=== PATIENT | male | born 1980 | race Hispanic/Latino ===

== ENCOUNTER 2017-05-04 04:09 | Emergency (ER) | payer OTHER ==
[2017-05-04 04:22] VITALS: RESP 18; TEMP 97.5; O2SAT 100
[2017-05-04] MEDS ORDERED: Morphine 4 MG/ML VIAL ONE (04:33)
[2017-05-04] MEDS ORDERED: Sodium Chloride 0.9% 1,000 ML IV STA ×2 (04:36→05:09)
[2017-05-04] MEDS ORDERED: Morphine 4 MG/ML VIAL IVP STA (04:36)
--- NOTE | 2017-05-04 04:39 | ED PDOC ---
HPI: General Adult Time Seen by Provider: 05/04/17 04:19 Chief Complaint (Nursing): Abdominal Pain History Per: Patient Additional Complaint(s): Pt. states 2 hr [employer] he developed non-radiating RLQ pain associated with non- bloody vomiting. States pain woke him up from sleep. Further states that he also had BM [employer] which was soft but no watery. Denies hematuria, back pain, flank pain, dysuria, trauma, fever, recent travel, sick contacts, hematemesis, BRBPR, melena, hematochezia. Past Medical History Reviewed: Historical Data, Nursing Documentation, Vital Signs Vital Signs: Last Vital Signs Temp 97.5 F L 05/04/17 04:19 Pulse 55 L 05/04/17 07:11 Resp 18 05/04/17 04:19 BP 112/73 05/04/17 07:11 Pulse Ox 100 05/04/17 07:05 - Surgical History Surgical History: No Surg Hx - Family History Family History: States: No Known Family Hx - Home Medications Home Medications: Ambulatory Orders Medication Instructions Recorded Ciprofloxacin HCl [Cipro] 500 mg PO BID #10 tablet 05/04/17 Tamsulosin [Flomax] 0.4 mg PO DAILY #7 cap 05/04/17 - Allergies Allergies/Adverse Reactions: Allergies Allergy/AdvReac Type Severity Reaction Status Date / Time No Known Allergies Allergy Verified 05/04/17 04:19 Review of Systems ROS Statement: Except As Marked, All Systems Reviewed And Found Negative Constitutional: Positive for: Chills Gastrointestinal: Positive for: Nausea, Vomiting, Abdominal Pain Physical Exam - Reviewed Nursing Documentation Reviewed: Yes Vital Signs Reviewed: Yes - Physical Exam Appears: Positive for: Well, Non-toxic, In Acute Distress (actively vomiting) Head Exam: Positive for: ATRAUMATIC, NORMAL INSPECTION, NORMOCEPHALIC Skin: Positive for: Normal Color, Warm, Diaphoresis Eye Exam: Positive for: Normal appearance Neck: Positive for: Normal, Painless ROM Cardiovascular/Chest: Positive for: Regular Rate, Rhythm Respiratory: Positive for: CNT, Normal Breath Sounds Gastrointestinal/Abdominal: Positive for: Normal Exam, Bowel Sounds, Soft, Other (negative psoas and obturator sign). Negative for: Tenderness (to deep palpation), Guarding, Rebound Back: Positive for: Normal Inspection. Negative for: L CVA Tenderness, R CVA Tenderness Extremity: Positive for: Normal ROM Neurologic/Psych: Positive for: Alert, Oriented. Negative for: Aphasia, Facial Droop - Laboratory Results Result Diagrams: 05/04/17 04:56 05/04/17 04:56 Urine dip results: Positive for: Blood (large), Glucose (250). Negative for: Leukocyte Esterase, Nitrate, Ketones, Bilirubin, Protein - ECG O2 Sat by Pulse Oximetry: 100 - Progress ED Course And Treament: Labs ordered. Morphine 4mg IV, zofran 4mg IV, IV NS bolus x 1 ordered. Lactate 4.6. Repeat VBG ordered at 3 hours. Additional NS bolus ordered. CT abd/ pelvis w/ IV contrast ordered. Disposition - Clinical Impression Clinical Impression: Abdominal pain, Renal stones, Renal colic - Patient ED Disposition Is Patient to be Admitted: Transfer of Care (Signed out to Dr. Price pending CT results and disposition.) - Disposition Referrals: Jd Ingram Jr., MD [Staff Provider] - Disposition: Routine/Home Disposition Time: 06:00 Condition: GOOD Additional Instructions: Follow up with your PCP in 2-3 days. Prescriptions: Ciprofloxacin HCl [Cipro] 500 mg PO BID #10 tablet Tamsulosin [Flomax] 0.4 mg PO DAILY #7 cap Instructions: Kidney Stones (ED)
[2017-05-04 04:59] LABS: BASO # 0.1 K/uL (0.0-0.2); BASO % 1.1 % (0.0-2.0); EOS # 0.2 K/uL (0.0-0.7); EOS % 2.4 % (0.0-4.0); HEMOGLOBIN 15.4 g/dL (12.0-18.0); LYMPH # 4.3 K/uL (1.0-4.3); LYMPH % 46.4 % (20.0-40.0); MEAN CELL VOLUME 87.9 fl (80.0-94.0); MEAN CORPUSCULAR HEMOGLOBIN 29.5 pg (27.0-31.0); MEAN CORPUSCULAR HGB CONC 33.5 g/dL (33.0-37.0); MEAN PLATELET VOLUME 9.1 fl (7.2-11.7); MONO # 0.9 K/uL (0.0-0.8); MONO % 9.8 % (0.0-10.0); NEUT # 3.7 K/uL (1.8-7.0); NEUT % 40.3 % (50.0-75.0); NRBC % 0.2 % (0.0-0.0); RBC 5.21 Mil/uL (4.40-5.90); RED CELL DISTRIBUTION WIDTH 13.3 % (11.5-14.5); WHITE BLOOD COUNT 9.3 K/uL (4.8-10.8)
[2017-05-04 05:02] LABS: VENOUS BLOOD GAS BASE EXCESS 0.3 mmol/L (0.0-2.0); VENOUS BLOOD GAS PCO2 38 mmHg (40-60); VENOUS BLOOD GAS PO2 22 mm/Hg (30-55); VENOUS BLOOD PH 7.42 (7.32-7.43)
[2017-05-04 05:07] LABS: CALCIUM 9.6 mg/dL (8.4-10.2); GFR AFRICAN-AMERICAN > 60; GFR NON-AFRICAN AMERICAN > 60; LIPASE 62 U/L (23-300)
[2017-05-04 05:10] LABS: ALB/GLOB RATIO 1.4 (1.0-2.1); ALBUMIN 4.6 g/dL (3.5-5.0); ALT/SGPT 46 U/L (21-72); AST/SGOT 48 U/L (17-59); BLOOD UREA NITROGEN 14 mg/dl (9-20)
[2017-05-04] MEDS ORDERED: Iohexol 300 100 ML IJ ONE (05:19)
[2017-05-04] MEDS ORDERED: Sodium Chloride 0.9% 50 ML IV ONE (05:19)
[2017-05-04 06:08] LABS: URINE BACTERIA RARE (<OCC); URINE BILIRUBIN NEGATIVE (NEGATIVE); URINE BLOOD LARGE (NEGATIVE); URINE CLARITY CLOUDY (Clear); URINE COLOR YELLOW (YELLOW); URINE GLUCOSE (UA) 150 mg/dL (Normal); URINE LEUKOCYTE ESTERASE NEG Leu/uL (Negative); URINE NITRATE NEGATIVE (NEGATIVE); URINE PROTEIN 30 mg/dL (NEGATIVE); URINE UROBILINOGEN 0.2-1.0 mg/dL (0.2-1.0)
--- NOTE | 2017-05-04 07:05 | ED PDOC ---
- Laboratory Results Result Diagrams: 05/04/17 04:56 05/04/17 04:56 - ECG O2 Sat by Pulse Oximetry: 100 - Progress Re-evaluation Time: 06:50 Condition: Re-examined, Improved Disposition Doctor Will See Patient In The: Office Counseled Patient/Family Regarding: Studies Performed, Diagnosis, Need For Followup - Clinical Impression Clinical Impression: Abdominal pain, Renal stones, Renal colic - POA Present On Arrival: None - Disposition Referrals: Jd Ingram Jr., MD [Staff Provider] - Disposition: Routine/Home Disposition Time: 07:00 Condition: GOOD Additional Instructions: Follow up with your PCP in 2-3 days. Prescriptions: Ciprofloxacin HCl [Cipro] 500 mg PO BID #10 tablet Tamsulosin [Flomax] 0.4 mg PO DAILY #7 cap Instructions: Kidney Stones (ED)
[2017-05-04 07:12] VITALS: BP 112/73; PULSE 55
--- NOTE | 2017-05-04 10:28 | CT ---
PROCEDURE: CT Abdomen and Pelvis with contrast HISTORY: RLQ abdominal pain, vomiting COMPARISON: None. TECHNIQUE: Contrast dose: 95 mL Omnipaque 300 Radiation dose: Total exam DLP = 751.64 mGy-cm. This CT exam was performed using one or more of the following dose reduction techniques: Automated exposure control, adjustment of the mA and/or kV according to patient size, and/or use of iterative reconstruction technique. FINDINGS: LOWER THORAX: Unremarkable. LIVER: Unremarkable. No gross lesion or ductal dilatation. GALLBLADDER AND BILE DUCTS: Unremarkable. PANCREAS: Unremarkable. No gross lesion or ductal dilatation. SPLEEN: Unremarkable. ADRENALS: Unremarkable. No mass. KIDNEYS AND URETERS: Unremarkable. No hydronephrosis. No solid mass. VASCULATURE: Unremarkable. No aortic aneurysm. BOWEL: Sigmoid diverticulosis without evidence of diverticulitis. No other abnormal bowel loops. No bowel obstruction. APPENDIX: Normal appendix. PERITONEUM: Unremarkable. No free fluid. No free air. LYMPH NODES: Unremarkable. No enlarged lymph nodes. BLADDER: Suboptimally distended. There is a 5 mm calculus at or adjacent to the right ureteral orifice, protruding into the bladder lumen. No mural thickening. REPRODUCTIVE: Unremarkable prostate BONES: No acute fracture. OTHER FINDINGS: None. IMPRESSION: 5 mm calculus at or adjacent to the right ureteral orifice protruding into the bladder lumen. No evidence of hydronephrosis or hydroureter. No evidence of acute appendicitis. Sigmoid diverticulosis. Otherwise unremarkable examination. Preliminary interpretation of this examination was reported by [employer] at 6:19 a.m. on 05/04/2017. There is concurrence of this report with the preliminary interpretation.
== END 2017-05-04 07:12 | disposition home or self-care (01) ==
LOC: H.ER 04:09
DX: N20.0 Calculus of kidney (principal)
CPT/HCPCS: 74177; 80053; 81003; 82803; 83690; 85025; 96361; 96374; 96375; 99283; J2270; J2405; J7040; Q9967